=== PATIENT | female | born 1940 | race Caucasian/White ===

== ENCOUNTER 2022-12-24 13:44 | Emergency (ER) | payer MEDICARE, BC ==
[2022-12-24 14:05] VITALS: PULSE 60; TEMP 97.6
[2022-12-24] MEDS ORDERED: OXYMETAZOLINE 0.05% NASL SPRAY 1 SPRAY BOTTLE NASAL STA (14:18)
[2022-12-24] MEDS ORDERED: TRANEXAMIC ACID 1,000 MG/10 ML VIAL MISCELLANE ONE (14:30)
[2022-12-24] MEDS ORDERED: SILVER NITRATE APPLICATOR 1 EACH STICK..EA. TOPICAL STA (15:26)
--- NOTE | 2022-12-24 15:58 | ED ---
ENT HPI - General Chief complaint: ENT Stated complaint: Nose bleed Time Seen by Provider: 12/24/22 13:53 Source: patient, EMS Mode of arrival: EMS Limitations: physical limitation - History of Present Illness Initial comments: 82-year-old female who is brought into the emergency department for epistaxis. She does reside at [facility]. They state that the patient began having a bloody nose this morning that lasted for 2 hours. She reports that she has been placed on oxygen over the past week. She normally does not wear oxygen. She is not understanding why she is wearing it because she has had no shortness of breath. She believes that it is drying out her nose. She is not on any blood thinners. Denies any trauma today. She did have a fall a couple of days ago for which she was not evaluated. She denies any headaches or visual changes. No neck pain. No other alleviating, precipitating or modifying factors - Related Data Home Medications Medication Instructions Recorded Confirmed Aspirin [Children's Aspirin] 81 mg PO DAILY 11/08/22 12/24/22 LORazepam [Lorazepam] 0.5 mg PO Q12H PRN 11/08/22 12/24/22 Levothyroxine Sodium 88 mcg PO DAILY 11/08/22 12/24/22 Simvastatin 40 mg PO HS 11/08/22 12/24/22 traZODone HCL 100 mg PO HS 11/08/22 12/24/22 Docusate [Colace] 100 mg PO DAILY 12/24/22 12/24/22 Ferrous Sulfate [Feosol] 325 mg PO DAILY 12/24/22 12/24/22 Ketorolac 0.5% Ophth Soln [Acular 1 drop LEFT EYE BID 12/24/22 12/24/22 0.5%] Melatonin 10 mg PO HS 12/24/22 12/24/22 Metoprolol Tartrate [Lopressor] 25 mg PO BID 12/24/22 12/24/22 Sodium Bicarbonate Tab 650 mg PO HS 12/24/22 12/24/22 Torsemide [Demadex] 20 mg PO HS 12/24/22 12/24/22 fluvoxaMINE MALEATE [Luvox] 100 mg PO TID@0500,1300,2100 12/24/22 12/24/22 polyethylene glycoL 3350 [Miralax] 17 gm PO DAILY PRN 12/24/22 12/24/22 Previous Rx's Medication Instructions Recorded Sodium Chloride [Saline Mist] 1 spray EA NOSTRIL QID #45 ml 12/24/22 Allergies Allergy/AdvReac Type Severity Reaction Status Date / Time Penicillins Allergy Unknown Verified 12/24/22 15:52 Review of Systems ROS Statement: Those systems with pertinent positive or pertinent negative responses have been documented in the HPI. ROS Other: All systems not noted in ROS Statement are negative. Past Medical History Past Medical History: Atrial Fibrillation, Diabetes Mellitus, Hyperlipidemia, Hypertension, Thyroid Disorder Additional Past Medical History / Comment(s): Falls, CKD, anxiety, weakness, arterialscerotic heart disease, valvular heart disease, History of Any Multi-Drug Resistant Organisms: None Reported Past Surgical History: Pacemaker Additional Past Surgical History / Comment(s): Cataracts, Open heart surgery, sick sinus syndrom with pacemaker, Past Psychological History: Anxiety, Bipolar Smoking Status: Former smoker Past Alcohol Use History: None Reported Past Drug Use History: None Reported General Exam Limitations: physical limitation General appearance: alert, in no apparent distress Head exam: Present: atraumatic, normocephalic, normal inspection Eye exam: Present: normal appearance, PERRL, EOMI. Absent: scleral icterus, conjunctival injection, periorbital swelling ENT exam: Present: other (Dried blood in the right nare) Neck exam: Present: normal inspection. Absent: tenderness, meningismus, lymphadenopathy Respiratory exam: Present: normal lung sounds bilaterally. Absent: respiratory distress, wheezes, rales, rhonchi, stridor Cardiovascular Exam: Present: regular rate, normal rhythm, normal heart sounds. Absent: systolic murmur, diastolic murmur, rubs, gallop, clicks GI/Abdominal exam: Present: soft, normal bowel sounds. Absent: distended, tenderness, guarding, rebound, rigid Extremities exam: Present: normal inspection, full ROM, normal capillary refill. Absent: tenderness, pedal edema, joint swelling, calf tenderness Back exam: Present: normal inspection Neurological exam: Present: alert, oriented X3, CN II-XII intact Psychiatric exam: Present: normal affect, normal mood Skin exam: Present: warm, dry, intact, normal color. Absent: rash Course Vital Signs 12/24/22 12/24/22 13:51 16:24 Temperature 97.6 F Pulse Rate 60 60 Respiratory 18 17 Rate Blood Pressure 153/91 134/69 O2 Sat by Pulse 96 95 Oximetry Medical Decision Making - Medical Decision Making Was pt. sent in by a medical professional or institution (HENRIETTA Monk, HISTOLOGY MANAGER, urgent care, hospital, or residential...) When possible be specific @ -[facility] Did you speak to anyone other than the patient for history (EMS, parent, family, police, friend...)? What history was obtained from this source @ -I spoke with the patient's Did you review nursing and triage notes (agree or disagree)? Why? @ -I reviewed and agree with nursing and triage notes Were old charts reviewed (outside hosp., previous admission, EMS record, old EKG, old radiological studies, urgent care reports/EKG's, residential records)? Report findings @ -No old charts were reviewed Differential Diagnosis (chest pain, altered mental status, abdominal pain women, abdominal pain men, vaginal bleeding, weakness, fever, dyspnea, syncope, headache, dizziness, GI bleed, back pain, seizure, CVA, palpatations, mental health, musculoskeletal)? @ -Anterior epistaxis, posterior epistaxis, digital trauma, septal hematoma EKG interpreted by me (3pts min.). @ -Not done X-rays interpreted by me (1pt min.). @ -None done CT interpreted by me (1pt min.). @ -None done U/S interpreted by me (1pt. min.). @ -None done What testing was considered but not performed or refused? (CT, X-rays, U/S, labs)? Why? @ -None What meds were considered but not given or refused? Why? @ -None Did you discuss the management of the patient with other professionals (professionals i.e. HENRIETTA Monk, HISTOLOGY MANAGER, lab, RT, psych nurse, social organization professor, copyright manager, teacher, space operations officer, caser up)? Give summary @ -No Was smoking cessation discussed for >3mins.? @ -No Was critical care preformed (if so, how long)? @ -No Were there social determinants of health that impacted care today? How? (Homelessness, low income, unemployed, alcoholism, drug addiction, transportation, low edu. Level, literacy, decrease access to med. care, long term, rehab)? @ -No Was there de-escalation of care discussed even if they declined (Discuss DNR or withdrawal of care, Hospice)? DNR status @ -No What co-morbidities impacted this encounter? (DM, HTN, Smoking, COPD, CAD, Cance r, CVA, ARF, Chemo, Hep., AIDS, mental health diagnosis, sleep apnea, morbid obesity)? @ -None Was patient admitted / discharged? Hospital course, mention meds given and route, prescriptions, significant lab abnormalities, going to OR and other pertinent info. @ -Upon arrival patient was placed in a trauma 2. Bleeding has slowed. We Do place Afrin in the patient's nose. I then used TXA on a cotton pledget. Upon reevaluation I do see some prominent vessels near Liu box plexus. This area is then cauterized. She will be discharged home. Instructed to use nasal saline if the patient is given and oxygen. Follow-up with ENT and return for any new or worsening symptoms. Patient was agreeable to plan she is discharged in stable condition Undiagnosed new problem with uncertain prognosis? @ -No Drug Therapy requiring intensive monitoring for toxicity (Heparin, Nitro, Insu mary, Cardizem)? @ -No Were any procedures done? @ -Silver nitrate cautery Diagnosis/symptom? @ -Acute anterior epistaxis right nare Acute, or Chronic, or Acute on Chronic? @ -Acute Uncomplicated (without systemic symptoms) or Complicated (systemic symptoms)? @ -Uncomplicated Side effects of treatment? @ -No Exacerbation, Progression, or Severe Exacerbation? @ -No Poses a threat to life or bodily function? How? (Chest pain, USA, MD, pneumonia, PE, COPD, DKA, ARF, appy, cholecystitis, CVA, Diverticulitis, Homicidal, Suicidal, threat to staff... and all critical care pts) @ -No Disposition Clinical Impression: Epistaxis Disposition: HOME SELF-CARE Condition: Stable Instructions (If sedation given, give patient instructions): Nosebleed (ED) Additional Instructions: Your nose was cauterized today. Please do not blow your nose for the next 3 days. Use nasal saline if you are wearing oxygen. 1 spray in each nostril 4 times a day. Return for any new or worsening symptoms Prescriptions: Sodium Chloride [Saline Mist] 1 spray EA NOSTRIL QID #45 ml Is patient prescribed a controlled substance at d/c from ED?: No Referrals: Shari Laurent DO [Primary Care Provider] - 1-2 days Ra Live MD [STAFF PHYSICIAN] - 1-2 days Time of Disposition: 15:57
[2022-12-24 16:31] VITALS: BP 134/69; RESP 17
== END 2022-12-24 16:28 | disposition home or self-care (01) ==
LOC: EC 13:44
DX: R04.0 Epistaxis (principal); E11.22 Type 2 diabetes mellitus with diabetic chronic kidney disease; I12.9 Hypertensive chronic kidney disease with stage 1 through stage 4 chronic kidney disease, or unspecified chronic kidney disease; N18.9 Chronic kidney disease, unspecified; I48.91 Unspecified atrial fibrillation; E78.5 Hyperlipidemia, unspecified; F41.9 Anxiety disorder, unspecified; F31.9 Bipolar disorder, unspecified; Z87.891 Personal history of nicotine dependence; Z79.82 Long term (current) use of aspirin; Z79.899 Other long term (current) drug therapy; Z79.890 Hormone replacement therapy; Z88.0 Allergy status to penicillin; Z95.0 Presence of cardiac pacemaker
CPT/HCPCS: 99284

== ENCOUNTER 2023-04-09 08:20 | Inpatient (IN) | payer MEDICARE, BC ==
[2023-04-09] MEDS ORDERED: SODIUM CHLORIDE 0.9% 1,000 ML IV ONE (08:26)
[2023-04-09 08:27] LABS: Glucose,Whole Blood 154 mg/dL (70-110)
[2023-04-09] MEDS ORDERED: IPRATROPIUM-ALBUTEROL 3 ML NEB INHALATION PRN (08:27)
[2023-04-09] MEDS ORDERED: LORazepam 2 MG/ML INJ IV PRN ×2 (08:27)
--- NOTE | 2023-04-09 08:30 | ED ---
General Adult HPI - General Stated complaint: Cardiac Arrest Time Seen by Provider: 04/09/23 08:26 Source: EMS, RN notes reviewed, old records reviewed Mode of arrival: EMS Limitations: altered mental status, physical limitation - History of Present Illness Initial comments: Patient is an unresponsive 82-year-old female presenting with cardiac arrest. EMS arrived and bystander CPR was being done. EMS did provide CPR for approximately 23 minutes with 5 epinephrine. Patient was in PEA. Patient was intubated. They did achieve return of circulation. Patient remains unresp onsive. Patient reportedly felt a little bit weak before the episode. Witnessed arrest by family when trying to help patient out of the bathroom. - Related Data Home Medications Medication Instructions Recorded Confirmed Simvastatin 40 mg PO HS 11/08/22 04/09/23 Docusate [Colace] 100 mg PO BID 12/24/22 04/09/23 Ferrous Sulfate [Feosol] 325 mg PO DAILY 12/24/22 04/09/23 Metoprolol Tartrate [Lopressor] 25 mg PO BID 12/24/22 04/09/23 Furosemide [Lasix] 40 mg PO BID 04/09/23 04/09/23 Levothyroxine Sodium [Synthroid] 100 mcg PO DAILY 04/09/23 04/09/23 Potassium Chloride [Klor-Con M20] 20 meq PO DAILY 04/09/23 04/09/23 Tamsulosin HCl [Flomax] 0.4 mg PO DAILY 04/09/23 04/09/23 Allergies Allergy/AdvReac Type Severity Reaction Status Date / Time Penicillins Allergy Unknown Verified 04/09/23 10:14 Review of Systems ROS Statement: Those systems with pertinent positive or pertinent negative responses have been documented in the HPI. ROS Other: All systems not noted in ROS Statement are negative. Limitations: ROS unobtainable due to patients medical condition Past Medical History Past Medical History: Atrial Fibrillation, Diabetes Mellitus, Hyperlipidemia, Hypertension, Thyroid Disorder Additional Past Medical History / Comment(s): Falls, CKD, anxiety, weakness, arterialscerotic heart disease, valvular heart disease, History of Any Multi-Drug Resistant Organisms: None Reported Past Surgical History: Pacemaker Additional Past Surgical History / Comment(s): Cataracts, Open heart surgery, sick sinus syndrom with pacemaker, Smoking Status: Former smoker General Exam Limitations: altered mental status, physical limitation General appearance: other (Unresponsive. Intubated.) Head exam: Present: atraumatic Eye exam: Present: other (Pupils not reactive) ENT exam: Present: normal oropharynx Neck exam: Present: normal inspection Respiratory exam: Present: normal lung sounds bilaterally (With bagging insufflation) Cardiovascular Exam: Present: regular rate, normal rhythm GI/Abdominal exam: Present: soft. Absent: tenderness Extremities exam: Present: normal inspection Neurological exam: Present: other (Unresponsive. GCS 3.) Psychiatric exam: Present: other (Unresponsive) Skin exam: Present: abrasion (Anterior shins) Course Vital Signs 04/09/23 04/09/23 04/09/23 08:21 08:25 08:28 Pulse Rate 91 Respiratory 20 Rate Blood Pressure 129/86 O2 Sat by Pulse 99 Oximetry Fraction of 100 100 Inspired Oxygen (FIO2) 04/09/23 04/09/23 04/09/23 08:45 09:00 09:18 Pulse Rate 78 Respiratory 20 20 20 Rate Blood Pressure 120/79 117/81 127/73 O2 Sat by Pulse 100 Oximetry Fraction of Inspired Oxygen (FIO2) 04/09/23 04/09/23 04/09/23 09:40 09:50 10:00 Pulse Rate 60 71 71 Respiratory 14 20 20 Rate Blood Pressure 154/83 154/83 O2 Sat by Pulse 99 Oximetry Fraction of Inspired Oxygen (FIO2) 04/09/23 04/09/23 04/09/23 10:10 10:30 10:40 Pulse Rate 72 72 72 Respiratory 18 18 18 Rate Blood Pressure 149/85 155/85 160/87 O2 Sat by Pulse 100 100 100 Oximetry Fraction of Inspired Oxygen (FIO2) 04/09/23 11:01 Pulse Rate 74 Respiratory Rate Blood Pressure O2 Sat by Pulse Oximetry Fraction of Inspired Oxygen (FIO2) EKG Findings - EKG Results: EKG: interpreted by ERMD (Paced rhythm with a rate of 90. Left axis. Wide QRS complex. Nonspecific T waves.) Procedures - ABG Interpretation Ph: 7.33 PCO2: 36.5 PO2: 400 Bicarbonate: 19 Interpretation: metabolic acidosis Medical Decision Making - Medical Decision Making Was pt. sent in by a medical professional or institution (, PA, ROLLER HELPER, urgent care, hospital, or assisted...) When possible be specific @ -No Did you speak to anyone other than the patient for history (EMS, parent, family, police, friend...)? What history was obtained from this source @ -EMS provides history as patient is unresponsive Did you review nursing and triage notes (agree or disagree)? Why? @ -I reviewed and agree with nursing and triage notes Were old charts reviewed (outside hosp., previous admission, EMS record, old EKG, old radiological studies, urgent care reports/EKG's, assisted records)? Report findings @ - Differential Diagnosis (chest pain, altered mental status, abdominal pain women, abdominal pain men, vaginal bleeding, weakness, fever, dyspnea, syncope, headac he, dizziness, GI bleed, back pain, seizure, CVA, palpatations, mental health, musculoskeletal)? @ -Differential Syncope: Valvular disease, hypertrophic cardiomyopathy, pulmonary embolism, tamponade, tachycardia, bradycardia, OH, hypovolemia, hemorrhage, dissection, anemia, intr acranial hemorrhage, seizure, hypoglycemia, carbon monoxide poisoning, this is not meant to be an all-inclusive list. EKG interpreted by me (3pts min.). @ -As above X-rays interpreted by me (1pt min.). @ -Chest x-ray shows right-sided effusion. Endotracheal tube in place. CT interpreted by me (1pt min.). @ -CT brain without acute obvious intracranial abnormality U/S interpreted by me (1pt. min.). @ -None done What testing was considered but not performed or refused? (CT, X-rays, U/S, labs)? Why? @ -None What meds were considered but not given or refused? Why? @ -None Did you discuss the management of the patient with other professionals (emili monae i.e. , PA, ROLLER HELPER, lab, RT, psych nurse, social professionals, top and seat cover fitter, teacher, county health officer, family caseworker)? Give summary @ -Case was discussed with Dr. Norman will admit, Dr. Laurent. Dr. Galvan has been paged for critical care Was smoking cessation discussed for >3mins.? @ -No Was critical care preformed (if so, how long)? @ -32 minutes critical care time Were there social determinants of health that impacted care today? How? (Homelessness, low income, unemployed, alcoholism, drug addiction, transportation, low edu. Level, literacy, decrease access to med. care, senior living, rehab)? @ -No Was there de-escalation of care discussed even if they declined (Discuss DNR or withdrawal of care, Hospice)? DNR status @ -No What co-morbidities impacted this encounter? (DM, HTN, Smoking, COPD, CAD, Cancer, CVA, ARF, Chemo, Hep., AIDS, mental health diagnosis, sleep apnea, morbid obesity)? @ -None Was patient admitted / discharged? Hospital course, mention meds given and [place], prescriptions, significant lab abnormalities, going to OR and other pertinent info. @ -Patient reevaluated. Blood pressure and heart rate has been stable. Family updated. Patient has hyperkalemia. Medications provided for this. Patient also has evidence of CHF and renal value. Cardiology and nephrology will also be placed on consult. Admission orders written. Patient will go to ICU. Undiagnosed new problem with uncertain prognosis? @ -No Drug Therapy requiring intensive monitoring for toxicity (Heparin, Nitro, Insulin, Cardizem)? @ -Patient currently receiving several medications for hyperkalemia that when he monitoring Were any procedures done? @ -No Diagnosis/symptom? @ -Cardiac arrest, hyperkalemia, renal failure, CHF Acute, or Chronic, or Acute on Chronic? @ -Acute, acute, acute on chronic, acute on chronic Uncomplicated (without systemic symptoms) or Complicated (systemic symptoms)? @ -default Side effects of treatment? @ -No Exacerbation, Progression, or Severe Exacerbation? @ -No Poses a threat to life or bodily function? How? (Chest pain, USA, OH, pneumonia, PE, COPD, DKA, ARF, appy, cholecystitis, CVA, Diverticulitis, Homicidal, Suicidal, threat to staff... and all critical care pts) @ -No - Lab Data Result diagrams: 04/09/23 08:32 04/09/23 08:32 Lab Results 04/09/23 04/09/23 04/09/23 Range/Units 08:26 08:32 08:32 WBC 5.0 (3.8-10.6) k/uL RBC 3.45 L (3.80-5.40) m/uL Hgb 10.5 L (11.4-16.0) gm/dL Hct 34.5 (34.0-46.0) % MCV 99.8 (80.0-100.0) fL MCH 30.4 (25.0-35.0) pg MCHC 30.4 L (31.0-37.0) g/dL RDW 16.0 H (11.5-15.5) % Plt Count 118 L (150-450) k/uL MPV 9.2 Neutrophils % 72 % Lymphocytes % 21 % Monocytes % 5 % Eosinophils % 1 % Basophils % 0 % Neutrophils # 3.6 (1.3-7.7) k/uL Lymphocytes # 1.1 (1.0-4.8) k/uL Monocytes # 0.2 (0-1.0) k/uL Eosinophils # 0.0 (0-0.7) k/uL Basophils # 0.0 (0-0.2) k/uL Hypochromasia Marked Anisocytosis Slight Macrocytosis Slight PT 15.0 H (10.0-12.5) sec INR 1.4 H (<1.2) APTT 19.8 L (22.0-30.0) sec Sample Site ABG pH (7.35-7.45) ABG pCO2 (35-45) mmHg ABG pO2 (83-108) mmHg ABG HCO3 (21-25) mmol/L ABG Total CO2 (19-24) mmol/L ABG O2 Saturation (94-97) % ABG Base Excess mmol/L Walker Test FiO2 % Sodium (137-145) mmol/L Potassium (3.5-5.1) mmol/L Chloride (98-107) mmol/L Carbon Dioxide (22-30) mmol/L Anion Gap mmol/L BUN (7-17) mg/dL Creatinine (0.52-1.04) mg/dL Est GFR (CKD-EPI)AfAm (>60 ml/min/1.73 sqM) Est GFR (CKD-EPI)NonAf (>60 ml/min/1.73 sqM) Glucose (74-99) mg/dL POC Glucose (mg/dL) 154 H (70-110) mg/dL POC Glu Product Development Carpenter ID Agustina Granger Calcium (8.4-10.2) mg/dL Magnesium (1.6-2.3) mg/dL Total Bilirubin (0.2-1.3) mg/dL AST (14-36) U/L ALT (4-34) U/L Alkaline Phosphatase (38-126) U/L Troponin I (0.000-0.034) ng/mL NT-Pro-B Natriuret Pep pg/mL Total Protein (6.3-8.2) g/dL Albumin (3.5-5.0) g/dL Urine Color Urine Appearance (Clear) Urine pH (5.0-8.0) Ur Specific [place] (1.001-1.035) Urine Protein (Negative) Urine Glucose (UA) (Negative) Urine Ketones (Negative) Urine Blood (Negative) Urine Nitrite (Negative) Urine Bilirubin (Negative) Urine Urobilinogen (<2.0) mg/dL Ur Leukocyte Esterase (Negative) Urine RBC (0-5) /hpf Urine WBC (0-5) /hpf Urine WBC Clumps (None) /hpf Ur Squamous Epith Cells (0-4) /hpf Amorphous Sediment (None) /hpf Urine Mucus (None) /hpf Influenza Type A (PCR) (Not Detectd) Influenza Type B (PCR) (Not Detectd) RSV (PCR) (Not Detectd) SARS-CoV-2 (PCR) (Not Detectd) 04/09/23 04/09/23 04/09/23 Range/Units 08:32 08:32 08:32 WBC (3.8-10.6) k/uL RBC (3.80-5.40) m/uL Hgb (11.4-16.0) gm/dL Hct (34.0-46.0) % MCV (80.0-100.0) fL MCH (25.0-35.0) pg MCHC (31.0-37.0) g/dL RDW (11.5-15.5) % Plt Count (150-450) k/uL MPV Neutrophils % % Lymphocytes % % Monocytes % % Eosinophils % % Basophils % % Neutrophils # (1.3-7.7) k/uL Lymphocytes # (1.0-4.8) k/uL Monocytes # (0-1.0) k/uL Eosinophils # (0-0.7) k/uL Basophils # (0-0.2) k/uL Hypochromasia Anisocytosis Macrocytosis PT (10.0-12.5) sec INR (<1.2) APTT (22.0-30.0) sec Sample Site ABG pH (7.35-7.45) ABG pCO2 (35-45) mmHg ABG pO2 (83-108) mmHg ABG HCO3 (21-25) mmol/L ABG Total CO2 (19-24) mmol/L ABG O2 Saturation (94-97) % ABG Base Excess mmol/L Walker Test FiO2 % Sodium 131 L (137-145) mmol/L Potassium 6.6 H* (3.5-5.1) mmol/L Chloride 96 L (98-107) mmol/L Carbon Dioxide 15 L (22-30) mmol/L Anion Gap 20 mmol/L BUN 83 H (7-17) mg/dL Creatinine 3.97 H (0.52-1.04) mg/dL Est GFR (CKD-EPI)AfAm 11 (>60 ml/min/1.73 sqM) Est GFR (CKD-EPI)NonAf 10 (>60 ml/min/1.73 sqM) Glucose 198 H (74-99) mg/dL POC Glucose (mg/dL) (70-110) mg/dL POC Glu Product Development Carpenter ID Calcium 8.5 (8.4-10.2) mg/dL Magnesium 2.7 H (1.6-2.3) mg/dL Total Bilirubin 0.7 (0.2-1.3) mg/dL AST 91 H (14-36) U/L ALT 67 H (4-34) U/L Alkaline Phosphatase 184 H (38-126) U/L Troponin I 0.022 (0.000-0.034) ng/mL NT-Pro-B Natriuret Pep pg/mL Total Protein 5.5 L (6.3-8.2) g/dL Albumin 2.8 L (3.5-5.0) g/dL Urine Color Light Yellow Urine Appearance Cloudy H (Clear) Urine pH 7.5 (5.0-8.0) Ur Specific [place] 1.014 (1.001-1.035) Urine Protein 2+ H (Negative) Urine Glucose (UA) Negative (Negative) Urine Ketones Negative (Negative) Urine Blood Negative (Negative) Urine Nitrite Negative (Negative) Urine Bilirubin Negative (Negative) Urine Urobilinogen <2.0 (<2.0) mg/dL Ur Leukocyte Esterase Moderate H (Negative) Urine RBC 2 (0-5) /hpf Urine WBC 39 H (0-5) /hpf Urine WBC Clumps Rare H (None) /hpf Ur Squamous Epith Cells 3 (0-4) /hpf Amorphous Sediment Few H (None) /hpf Urine Mucus Rare H (None) /hpf Influenza Type A (PCR) (Not Detectd) Influenza Type B (PCR) (Not Detectd) RSV (PCR) (Not Detectd) SARS-CoV-2 (PCR) (Not Detectd) 04/09/23 04/09/23 04/09/23 Range/Units 08:32 09:00 09:25 WBC (3.8-10.6) k/uL RBC (3.80-5.40) m/uL Hgb (11.4-16.0) gm/dL Hct (34.0-46.0) % MCV (80.0-100.0) fL MCH (25.0-35.0) pg MCHC (31.0-37.0) g/dL RDW (11.5-15.5) % Plt Count (150-450) k/uL MPV Neutrophils % % Lymphocytes % % Monocytes % % Eosinophils % % Basophils % % Neutrophils # (1.3-7.7) k/uL Lymphocytes # (1.0-4.8) k/uL Monocytes # (0-1.0) k/uL Eosinophils # (0-0.7) k/uL Basophils # (0-0.2) k/uL Hypochromasia Anisocytosis Macrocytosis PT (10.0-12.5) sec INR (<1.2) APTT (22.0-30.0) sec Sample Site rbrach ABG pH 7.34 L (7.35-7.45) ABG pCO2 37 (35-45) mmHg ABG pO2 >400 H (83-108) mmHg ABG HCO3 20 L (21-25) mmol/L ABG Total CO2 21 (19-24) mmol/L ABG O2 Saturation 100.0 H (94-97) % ABG Base Excess -6.4 mmol/L Walker Test Yes FiO2 100 % Sodium (137-145) mmol/L Potassium (3.5-5.1) mmol/L Chloride (98-107) mmol/L Carbon Dioxide (22-30) mmol/L Anion Gap mmol/L BUN (7-17) mg/dL Creatinine (0.52-1.04) mg/dL Est GFR (CKD-EPI)AfAm (>60 ml/min/1.73 sqM) Est GFR (CKD-EPI)NonAf (>60 ml/min/1.73 sqM) Glucose (74-99) mg/dL POC Glucose (mg/dL) (70-110) mg/dL POC Glu Product Development Carpenter ID Calcium (8.4-10.2) mg/dL Magnesium (1.6-2.3) mg/dL Total Bilirubin (0.2-1.3) mg/dL AST (14-36) U/L ALT (4-34) U/L Alkaline Phosphatase (38-126) U/L Troponin I (0.000-0.034) ng/mL NT-Pro-B Natriuret Pep 08627 pg/mL Total Protein (6.3-8.2) g/dL Albumin (3.5-5.0) g/dL Urine Color Urine Appearance (Clear) Urine pH (5.0-8.0) Ur Specific [place] (1.001-1.035) Urine Protein (Negative) Urine Glucose (UA) (Negative) Urine Ketones (Negative) Urine Blood (Negative) Urine Nitrite (Negative) Urine Bilirubin (Negative) Urine Urobilinogen (<2.0) mg/dL Ur Leukocyte Esterase (Negative) Urine RBC (0-5) /hpf Urine WBC (0-5) /hpf Urine WBC Clumps (None) /hpf Ur Squamous Epith Cells (0-4) /hpf Amorphous Sediment (None) /hpf Urine Mucus (None) /hpf Influenza Type A (PCR) Not Detected (Not Detectd) Influenza Type B (PCR) Not Detected (Not Detectd) RSV (PCR) Not Detected (Not Detectd) SARS-CoV-2 (PCR) Not Detected (Not Detectd) Critical Care Time Critical Care Time: Yes Total Critical Care Time: 32 Disposition Clinical Impression: Cardiac arrest, Hyperkalemia, Renal failure, CHF (congestive heart failure) Disposition: ADMITTED IP TO THIS [facility] Condition: Critical Is patient prescribed a controlled substance at d/c from ED?: No Referrals: Shari Laurent DO [Primary Care Provider] - 1-2 days Time of Disposition: 11:25
[2023-04-09 08:43] LABS: Anisocytosis Slight; Basophils % (A) 0 %; Eosinophils % (A) 1 %; HCT 34.5 % (34.0-46.0); HGB 10.5 gm/dL (11.4-16.0); Hypochromasia Marked; Lymphocytes # (A) 1.1 k/uL (1.0-4.8); Lymphocytes % (A) 21 %; MCH 30.4 pg (25.0-35.0); MCHC 30.4 g/dL (31.0-37.0); MCV 99.8 fL (80.0-100.0); Macrocytosis Slight; Mean Platelet Volume 9.2; Monocytes # (A) 0.2 k/uL (0-1.0); Monocytes % (A) 5 %; Neutrophils # (A) 3.6 k/uL (1.3-7.7); Neutrophils % (A) 72 %; Platelet Count 118 k/uL (150-450); RBC 3.45 m/uL (3.80-5.40)
[2023-04-09] MEDS ORDERED: CHLORHEXIDINE GLUCONATE 15 ML CUP MUCOUS MEM SCH (09:00)
[2023-04-09 09:02] LABS: INR 1.4 (<1.2)
--- NOTE | 2023-04-09 09:03 | XR ---
EXAMINATION TYPE: XR chest 1V portable DATE OF EXAM: 04/09/2023 COMPARISON: None INDICATION: Altered mental status post cardiac arrest TECHNIQUE: Single frontal view of the chest is obtained. FINDINGS: The heart size is enlarged. The pulmonary vasculature is normal. Diffuse increased opacities through the right lung. There is silhouetting the right diaphragm. A righ t pleural effusion appears to be present. Pacemaker overlies the left chest. IMPRESSION: 1. Opacification right lung. Correlate for right pleural effusion. 2. Cardiomegaly
[2023-04-09 09:06] LABS: Partial Thromboplastin Time 19.8 sec (22.0-30.0)
[2023-04-09 09:23] LABS: ALT 67 U/L (4-34); AST 91 U/L (14-36); African American GFR (CKD) 11 (>60 ml/min/1.73 sqM); Albumin 2.8 g/dL (3.5-5.0); Alkaline Phosphatase 184 U/L (38-126); Anion Gap 20 mmol/L; Blood Urea Nitrogen 83 mg/dL (7-17); Calcium 8.5 mg/dL (8.4-10.2); Carbon Dioxide 15 mmol/L (22-30); Chloride 96 mmol/L (98-107); Glucose 198 mg/dL (74-99); Magnesium 2.7 mg/dL (1.6-2.3); Non-African American GFR(CKD) 10 (>60 ml/min/1.73 sqM); Sodium 131 mmol/L (137-145); Total Bilirubin 0.7 mg/dL (0.2-1.3); Total Protein 5.5 g/dL (6.3-8.2)
[2023-04-09 09:28] LABS: ABG Base Excess -6.4 mmol/L; ABG HCO3 20 mmol/L (21-25); ABG PCO2 37 mmHg (35-45); ABG PH 7.34 (7.35-7.45); ABG PO2 >400 mmHg (83-108); ABG TCO2 21 mmol/L (19-24); Allen Test Performed? Yes
[2023-04-09 09:30] LABS: Amorphous Sediment,Urine Few /hpf; Appearance,Urine Cloudy (Clear); Bilirubin,Urine Negative (Negative); Blood,Urine Negative (Negative); Color,Urine Light Yellow; Glucose,Urine (UA) Negative (Negative); Ketones,Urine Negative (Negative); Leukocyte Esterase,Urine Moderate (Negative); Mucus,Urine Rare /hpf; Nitrite,Urine Negative (Negative); PH, Urine 7.5 (5.0-8.0); Protein,Urine 2+ (Negative); RBC,Urine 2 /hpf (0-5); Specific Gravity,Urine 1.014 (1.001-1.035); Squamous Epithelial Cell,Urine 3 /hpf (0-4); Urobilinogen,Urine <2.0 mg/dL (<2.0); WBC,Urine 39 /hpf (0-5)
--- NOTE | 2023-04-09 09:54 | CT ---
EXAMINATION TYPE: CT brain wo con DATE OF EXAM: 04/09/2023 HISTORY: altered mental status CT DLP: 1095.4 mGycm. Automated Exposure Control for Dose Reduction was Utilized. TECHNIQUE: CT scan of the head is performed without contrast. COMPARISON: None. FINDINGS: There is no acute intracranial hemorrhage or midline shift identified. There is mild to m oderate diffuse ventricular and sulcal prominence consistent with diffuse age-related cerebral atroph y. There is mild to moderate low-attenuation in the periventricular white matter most likely consist ent with chronic small vessel ischemic change in patient of this age. Vascular calcification distal internal carotid arteries is present. The globes are intact and the visualized sinuses are clear. IMPRESSION: No acute intracranial hemorrhage or midline shift. There is mild to moderate diffuse ag e-related cerebral atrophy and probable chronic small vessel ischemic change noted.
--- NOTE | 2023-04-09 10:01 | XR ---
EXAMINATION TYPE: XR chest 1V DATE OF EXAM: 04/09/2023 COMPARISON: 04/09/2023 INDICATION: OG tube placement TECHNIQUE: Single frontal view of the chest is obtained. FINDINGS: The heart size is enlarged. The pulmonary vasculature is normal. Right pleural effusion is present. Endotracheal tube tip 7.2 cm above the roberto. Nasogastric tube transverses the thorax tip within the proximal the left upper quadrant. This can be advanced at least 10 cm for better positioning. IMPRESSION: 1. Moderate right pleural effusion. 2. Cardiomegaly. 3. Endotracheal tube tip just within the proximal left upper quadrant. This can be advanced 10 cm for better seating.
[2023-04-09 10:24] LABS: Potassium 6.6 mmol/L (3.5-5.1)
[2023-04-09] MEDS ORDERED: DEXTROSE 50% SYRINGE 50 ML IVP ONE (10:35)
[2023-04-09] MEDS ORDERED: ALBUTEROL NEB (CONC) 2.5 MG/0.5 ML INHALATION ONE (10:35)
[2023-04-09] MEDS ORDERED: INSULIN REGULAR 100 UNIT/ML VIAL (IV) IV ONE (10:35)
[2023-04-09] MEDS ORDERED: SODIUM BICARB 8.4% 50 ML SYR (1 MEQ/ML) IV ONE (10:35)
[2023-04-09] MEDS ORDERED: CALCIUM GLUCONATE IN NACL 1 GM in SALINE 1 100ML.BAG IVPB ONE (10:35)
[2023-04-09] MEDS ORDERED: FUROSEMIDE 10 MG/ML 4 ML VIAL IV STA (10:35)
[2023-04-09] MEDS ORDERED: ALBUTEROL NEBULIZED 2.5 MG/3 ML INHALATION STA (10:45)
[2023-04-09] MEDS ORDERED: NALOXONE 0.4 MG/ML 1 ML VIAL IV PRN (11:25)
[2023-04-09 12:07] VITALS: RESP 16
[2023-04-09 12:47] LABS: Glucose,Whole Blood 192 mg/dL (70-110)
[2023-04-09 13:12] LABS: ALT 55 U/L (4-34); AST 101 U/L (14-36); African American GFR (CKD) 12 (>60 ml/min/1.73 sqM); Albumin 3.4 g/dL (3.5-5.0); Alkaline Phosphatase 226 U/L (38-126); Anion Gap 17 mmol/L; Blood Urea Nitrogen 91 mg/dL (7-17); Calcium 9.4 mg/dL (8.4-10.2); Carbon Dioxide 20 mmol/L (22-30); Chloride 94 mmol/L (98-107); Glucose 194 mg/dL (74-99); Non-African American GFR(CKD) 10 (>60 ml/min/1.73 sqM); Sodium 131 mmol/L (137-145); Total Bilirubin 0.9 mg/dL (0.2-1.3); Total Protein 6.4 g/dL (6.3-8.2)
[2023-04-09] MEDS ORDERED: DEXTROSE 5% IN WATER 1,000 ML with SODIUM BICARB (1 MEQ/ML) 150 ML IV SCH (13:30)
[2023-04-09 13:36] LABS: Potassium 6.5 mmol/L (3.5-5.1)
[2023-04-09] MEDS ORDERED: ATROPINE OPHTH SOLN 1% 5ML BTL SUBLINGUAL PRN (13:59)
[2023-04-09] MEDS ORDERED: MORPHINE SULFATE 4 MG/ML SYRINGE IV PRN (13:59)
[2023-04-09] MEDS ORDERED: MORPHINE SULFATE 2 MG/ML SYRINGE IV PRN (13:59)
[2023-04-09] MEDS ORDERED: SCOPOLAMINE 1 MG/72 HR PATCH TRANSDERM SCH (14:00)
--- NOTE | 2023-04-09 14:15 | P.HPIM ---
History of Present Illness H&P Date: 04/09/23 Chief Complaint: Became unresponsive This is a 82-year-old patient, follows with Dr. Shari toledo. Chronic stable medical conditions include atrial fibrillation, diabetes, hyperlipidemia, hypertension, hypothyroid, chronic kidney disease, atherosclerotic heart disease, pacemaker, sick sinus syndrome with a pacemaker. Bipolar. History is obtained by the and family members including the daughter in the waiting room. For the last few days patient has been getting another weak and tired. Was even having trouble getting up. had to help her up. Appetite had been poor. No fever no chills. Normally does use a walker. Patient was witnessed to become unconscious. EMS was called out. They found the patient to be unresponsive, pulseless and apneic. 23 minutes of CPR was done prior to that.neighbor Carried out chest compressions. Patient presented with pulseless electrical activity on the monitor. t subsequently developed a pulse. Remained apneic. Patient is intubated. This afternoon in the ICU. Propofol drip blood pressure 160 systolic. In tubated. FiO2 50 to PEEP of 5. Family did inform me that patient's wishes were DO NOT RESUSCITATE. presently was to give her a chance. Review of systems: Patient intubated Social history: Lives with her . Does use a walker. Former smoker Physical examination: VITAL SIGNS: Afebrile, 60, 16, 174/86, 100% on the ventilator. FiO2 50% GENERAL: BMI 22.5, in bed. EYES: Pupils equal. Conjunctiva normal. HEENT: External appearance of nose and ears normal, oral cavity grossly normal ET tube. NECK: JVD unable to assess; masses not palpable. HEART: First and second heart sounds are normal; no edema. LUNGS: Respiratory rate increased; decreased breath sounds. ABDOMEN: Soft, nontender, liver spleen not palpable, no masses palpable. PSYCH: Sedatedl. MUSCULOSKELETAL:No Clubbing/cyanosis;muscles-grossly intact. OA NEUROLOGICAL: [Cranial nerves grossly intact; no facial asymmetry, patient sedated LYMPHATICS: No lymph nodes palpable in the axilla and neck INVESTIGATIONS, reviewed in the clinical context: 04/09/2023: White count 5 hemoglobin 10.5 platelets 118 sodium 131 potassium 6.5 BUN 91 creatinine 3.80 blood glucose 190 AST 101 ALT 55 Influenza type A, B, RSV, COVID-19: Not detected EKG tracing personally reviewed by [id number] pacemaker. Chest x-ray film personally reviewed by me-right basilar Javier vacation Computed tomography scan of the brain age-related atrophy Assessment plan: -Witnessed cardiac arrest. 423 minutes of CPR given by the EMS, prior to that by a bystander. 5 epinephrine. Rhythm was PEA. Intubated on the field. -Permanent pacemaker with a ventricular rhythm Cardiology consulted -Chronic kidney disease stage IV. Likely atherosclerosis. Causing hyperkalemia Nephrology consulted -Severe hyperkalemia that could've contributing to patient's cardiac arrest secondary to renal failure Sodium bicarbonate. Dextrose. Insulin. -Chronic medical debility, using a walker at baseline -Acute medical debility. Last few days patient has been becoming progressively increasingly weak. had to require given a hand including getting her hand this morning to get up. -Hypothyroid Synthroid 100 g a day -Bladder dysfunction Flomax -DO NOT RESUSCITATE Admit for the patient's family including the patient's and daughter the waiting room with other family members. The Pain to them that patient's prognosis guarded given his patient's advanced age. Decreased functional capacity. Also patient's wishes have been DO NOT RESUSCITATE as expressed by all the family members. 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 Past Medical History Past Medical History: Atrial Fibrillation, Diabetes Mellitus, Hyperlipidemia, Hypertension, Thyroid Disorder Additional Past Medical History / Comment(s): Falls, CKD, anxiety, weakness, arterialscerotic heart disease, valvular heart disease, History of Any Multi-Drug Resistant Organisms: None Reported Past Surgical History: Pacemaker Additional Past Surgical History / Comment(s): Cataracts, Open heart surgery, sick sinus syndrom with pacemaker, Smoking Status: Former smoker Medications and Allergies Home Medications Medication Instructions Recorded Confirmed Type Simvastatin 40 mg PO HS 11/08/22 04/09/23 History Docusate [Colace] 100 mg PO BID 12/24/22 04/09/23 History Ferrous Sulfate [Feosol] 325 mg PO DAILY 12/24/22 04/09/23 History Metoprolol Tartrate [Lopressor] 25 mg PO BID 12/24/22 04/09/23 History Furosemide [Lasix] 40 mg PO BID 04/09/23 04/09/23 History Levothyroxine Sodium [Synthroid] 100 mcg PO DAILY 04/09/23 04/09/23 History Potassium Chloride [Klor-Con M20] 20 meq PO DAILY 04/09/23 04/09/23 History Tamsulosin HCl [Flomax] 0.4 mg PO DAILY 04/09/23 04/09/23 History Allergies Allergy/AdvReac Type Severity Reaction Status Date / Time Penicillins Allergy Unknown Verified 04/09/23 10:14 Physical Exam Vitals: Vital Signs Pulse Resp BP Pulse Ox FiO2 04/09/23 12:46 50 04/09/23 12:42 50 04/09/23 12:17 50 04/09/23 12:00 60 16 174/86 100 04/09/23 11:22 60 04/09/23 11:01 74 04/09/23 10:40 72 18 160/87 100 04/09/23 10:30 72 18 155/85 100 04/09/23 10:10 72 18 149/85 100 04/09/23 10:00 71 20 154/83 99 04/09/23 09:50 71 20 154/83 04/09/23 09:40 60 14 04/09/23 09:18 20 127/73 04/09/23 09:00 20 117/81 04/09/23 08:45 78 20 120/79 100 04/09/23 08:25 100 04/09/23 08:21 91 20 129/86 99 Intake and Output 04/08/23 04/09/23 04/09/23 22:59 06:59 14:59 Intake Total 2.198 Balance 2.198 Intake: Intake, IV Titration 2.198 Amount propofoL 1,000 mg In 2.198 Empty Bag 1 bag @ 15 MCG/ KG/MIN 5.511 mls/hr IV . Q18H9M [facility] Rx#:[id number] Other: Weight 61.235 kg Results CBC & Chem 7: 04/09/23 08:32 04/09/23 12:52 Labs: Abnormal Lab Results - Last 24 Hours (Table) 04/09/23 04/09/23 04/09/23 Range/Units 08:26 08:32 08:32 RBC 3.45 L (3.80-5.40) m/uL Hgb 10.5 L (11.4-16.0) gm/dL MCHC 30.4 L (31.0-37.0) g/dL RDW 16.0 H (11.5-15.5) % Plt Count 118 L (150-450) k/uL PT 15.0 H (10.0-12.5) sec INR 1.4 H (<1.2) APTT 19.8 L (22.0-30.0) sec ABG pH (7.35-7.45) ABG pO2 (83-108) mmHg ABG HCO3 (21-25) mmol/L ABG O2 Saturation (94-97) % Sodium (137-145) mmol/L Potassium (3.5-5.1) mmol/L Chloride (98-107) mmol/L Carbon Dioxide (22-30) mmol/L BUN (7-17) mg/dL Creatinine (0.52-1.04) mg/dL Glucose (74-99) mg/dL POC Glucose (mg/dL) 154 H (70-110) mg/dL Magnesium (1.6-2.3) mg/dL AST (14-36) U/L ALT (4-34) U/L Alkaline Phosphatase (38-126) U/L Total Protein (6.3-8.2) g/dL Albumin (3.5-5.0) g/dL Urine Appearance (Clear) Urine Protein (Negative) Ur Leukocyte Esterase (Negative) Urine WBC (0-5) /hpf Urine WBC Clumps (None) /hpf Amorphous Sediment (None) /hpf Urine Mucus (None) /hpf 04/09/23 04/09/23 04/09/23 Range/Units 08:32 08:32 09:25 RBC (3.80-5.40) m/uL Hgb (11.4-16.0) gm/dL MCHC (31.0-37.0) g/dL RDW (11.5-15.5) % Plt Count (150-450) k/uL PT (10.0-12.5) sec INR (<1.2) APTT (22.0-30.0) sec ABG pH 7.34 L (7.35-7.45) ABG pO2 >400 H (83-108) mmHg ABG HCO3 20 L (21-25) mmol/L ABG O2 Saturation 100.0 H (94-97) % Sodium 131 L (137-145) mmol/L Potassium 6.6 H* (3.5-5.1) mmol/L Chloride 96 L (98-107) mmol/L Carbon Dioxide 15 L (22-30) mmol/L BUN 83 H (7-17) mg/dL Creatinine 3.97 H (0.52-1.04) mg/dL Glucose 198 H (74-99) mg/dL POC Glucose (mg/dL) (70-110) mg/dL Magnesium 2.7 H (1.6-2.3) mg/dL AST 91 H (14-36) U/L ALT 67 H (4-34) U/L Alkaline Phosphatase 184 H (38-126) U/L Total Protein 5.5 L (6.3-8.2) g/dL Albumin 2.8 L (3.5-5.0) g/dL Urine Appearance Cloudy H (Clear) Urine Protein 2+ H (Negative) Ur Leukocyte Esterase Moderate H (Negative) Urine WBC 39 H (0-5) /hpf Urine WBC Clumps Rare H (None) /hpf Amorphous Sediment Few H (None) /hpf Urine Mucus Rare H (None) /hpf 04/09/23 04/09/23 Range/Units 12:46 12:52 RBC (3.80-5.40) m/uL Hgb (11.4-16.0) gm/dL MCHC (31.0-37.0) g/dL RDW (11.5-15.5) % Plt Count (150-450) k/uL PT (10.0-12.5) sec INR (<1.2) APTT (22.0-30.0) sec ABG pH (7.35-7.45) ABG pO2 (83-108) mmHg ABG HCO3 (21-25) mmol/L ABG O2 Saturation (94-97) % Sodium 131 L (137-145) mmol/L Potassium 6.5 H* (3.5-5.1) mmol/L Chloride 94 L (98-107) mmol/L Carbon Dioxide 20 L (22-30) mmol/L BUN 91 H (7-17) mg/dL Creatinine 3.80 H (0.52-1.04) mg/dL Glucose 194 H (74-99) mg/dL POC Glucose (mg/dL) 192 H (70-110) mg/dL Magnesium (1.6-2.3) mg/dL AST 101 H (14-36) U/L ALT 55 H (4-34) U/L Alkaline Phosphatase 226 H (38-126) U/L Total Protein (6.3-8.2) g/dL Albumin 3.4 L (3.5-5.0) g/dL Urine Appearance (Clear) Urine Protein (Negative) Ur Leukocyte Esterase (Negative) Urine WBC (0-5) /hpf Urine WBC Clumps (None) /hpf Amorphous Sediment (None) /hpf Urine Mucus (None) /hpf
[2023-04-09 14:30] VITALS: TEMP 91.8
--- NOTE | 2023-04-09 14:50 | P.CNPUL ---
History of Present Illness Consult date: 04/09/23 Requesting physician: Tommie Norman Reason for consult: other (Cardiac arrest and respiratory failure) Chief complaint: Cardiac arrest History of present illness: This is an 82-year-old female primarily a patient of Dr. Shari toledo, known history of multiple medical problems including atrial fibrillation, dyslipidemia, coronary artery disease, sick sinus syndrome, history of pacemaker implantation, noted that the patient was having difficulty getting off the commode earlier today, suddenly the patient collapsed, and started CPR. EMS was called and arrived within 10 minutes, patient was unresponsive and pulseless all along and she was also apneic, EMS performed CPR patient had at least 23 minutes of CPR. She was intubated in the field, and she was brought into the ER. Patient remained unresponsive, however she has adequate blood pressure, intubated, mechanically ventilated, and family is at bedside. EMS gave at least 5 rounds of epinephrine during CPR, patient was in pulseless electrical activity all along. Chest x-ray in the ER showed endotracheal tube about 5 cm above the roberto, and there was evidence of a large right-sided pleural effusion. At any rate I evaluated the patient in the ICU, multiple family members including and daughter were at bedside, discussed the condition and her clinical picture, family wishes to proceed to comfort care measures. Hence we'll proceed to comfort. Based on the wishes of the family and based on her previously expressed wishes. Reviewed ABG post intubation showed a pO2 of 400 pCO2 37 pH of 7.34 basic metabolic profile showed hypokalemia with potassium of 6.5 BUN of 91 and creatinine 3.80, patient tested negative for influenza A, influenza B, RSV and COVID-19 infection Review of Systems ROS unobtainable: due to endotracheal tube Past Medical History Past Medical History: Atrial Fibrillation, Diabetes Mellitus, Hyperlipidemia, Hypertension, Thyroid Disorder Additional Past Medical History / Comment(s): Falls, CKD, anxiety, weakness, arterialscerotic heart disease, valvular heart disease, History of Any Multi-Drug Resistant Organisms: None Reported Past Surgical History: Pacemaker Additional Past Surgical History / Comment(s): Cataracts, Open heart surgery, sick sinus syndrom with pacemaker, Smoking Status: Former smoker Medications and Allergies Home Medications Medication Instructions Recorded Confirmed Type Simvastatin 40 mg PO HS 11/08/22 04/09/23 History Docusate [Colace] 100 mg PO BID 12/24/22 04/09/23 History Ferrous Sulfate [Feosol] 325 mg PO DAILY 12/24/22 04/09/23 History Metoprolol Tartrate [Lopressor] 25 mg PO BID 12/24/22 04/09/23 History Furosemide [Lasix] 40 mg PO BID 04/09/23 04/09/23 History Levothyroxine Sodium [Synthroid] 100 mcg PO DAILY 04/09/23 04/09/23 History Potassium Chloride [Klor-Con M20] 20 meq PO DAILY 04/09/23 04/09/23 History Tamsulosin HCl [Flomax] 0.4 mg PO DAILY 04/09/23 04/09/23 History Allergies Allergy/AdvReac Type Severity Reaction Status Date / Time Penicillins Allergy Unknown Verified 04/09/23 10:14 Physical Exam Vitals: Vital Signs Temp Pulse Resp BP Pulse Ox FiO2 04/09/23 14:00 75 16 153/81 100 04/09/23 13:30 60 16 158/81 100 04/09/23 13:00 60 16 170/84 98 04/09/23 12:46 50 04/09/23 12:42 50 04/09/23 12:30 91.8 F L 16 176/86 100 50 04/09/23 12:17 50 04/09/23 12:00 60 16 174/86 100 04/09/23 11:22 60 04/09/23 11:01 74 04/09/23 10:40 72 18 160/87 100 04/09/23 10:30 72 18 155/85 100 04/09/23 10:10 72 18 149/85 100 04/09/23 10:00 71 20 154/83 99 04/09/23 09:50 71 20 154/83 04/09/23 09:40 60 14 04/09/23 09:18 20 127/73 04/09/23 09:00 20 117/81 04/09/23 08:45 78 20 120/79 100 04/09/23 08:25 100 04/09/23 08:21 91 20 129/86 99 Intake and Output 04/08/23 04/09/23 04/09/23 22:59 06:59 14:59 Intake Total 2.198 Balance 2.198 Intake: Intake, IV Titration 2.198 Amount propofoL 1,000 mg In 2.198 Empty Bag 1 bag @ 15 MCG/ KG/MIN 5.511 mls/hr IV . Q18H9M [facility] Rx#:[id number] Other: Weight 61.235 kg GENERAL: Revealed an 82-year-old female unresponsive pinpoint pupils, in no distress intubated and mechanically ventilated EYES: Pinpoint pupils, nonreactive. Head atraumatic, normocephalic HEENT: Neck is supple no neck masses no JVD endotracheal tube is intact.. HEART: Distant S1 and S2, no S3 gallop, no murmur. LUNGS: Diminished breath sound bilaterally no rhonchi no wheezes ABDOMEN: Soft nontender no melena no rebound no guarding PSYCH: Could not assess. Unresponsive to any stimuli Neurologic: Unresponsive, to any stimuli. MUSCULOSKELETAL: No deformities noted. LYMPHATICS: No cervical lymphadenopathy noted Results - Laboratory Findings CBC and BMP: 04/09/23 08:32 04/09/23 12:52 ABG ABG pH 7.34 (7.35-7.45) L 04/09/23 09:25 ABG pCO2 37 mmHg (35-45) 04/09/23 09:25 ABG pO2 >400 mmHg (83-108) H 04/09/23 09:25 ABG O2 Saturation 100.0 % (94-97) H 04/09/23 09:25 PT/INR, D-dimer PT 15.0 sec (10.0-12.5) H 04/09/23 08:32 INR 1.4 (<1.2) H 04/09/23 08:32 Abnormal lab findings: Abnormal Labs 04/09/23 04/09/23 04/09/23 08:26 08:32 08:32 RBC 3.45 L Hgb 10.5 L MCHC 30.4 L RDW 16.0 H Plt Count 118 L PT 15.0 H INR 1.4 H APTT 19.8 L ABG pH ABG pO2 ABG HCO3 ABG O2 Saturation Sodium Potassium Chloride Carbon Dioxide BUN Creatinine Glucose POC Glucose (mg/dL) 154 H Magnesium AST ALT Alkaline Phosphatase Total Protein Albumin Urine Appearance Urine Protein Ur Leukocyte Esterase Urine WBC Urine WBC Clumps Amorphous Sediment Urine Mucus 04/09/23 04/09/23 04/09/23 08:32 08:32 09:25 RBC Hgb MCHC RDW Plt Count PT INR APTT ABG pH 7.34 L ABG pO2 >400 H ABG HCO3 20 L ABG O2 Saturation 100.0 H Sodium 131 L Potassium 6.6 H* Chloride 96 L Carbon Dioxide 15 L BUN 83 H Creatinine 3.97 H Glucose 198 H POC Glucose (mg/dL) Magnesium 2.7 H AST 91 H ALT 67 H Alkaline Phosphatase 184 H Total Protein 5.5 L Albumin 2.8 L Urine Appearance Cloudy H Urine Protein 2+ H Ur Leukocyte Esterase Moderate H Urine WBC 39 H Urine WBC Clumps Rare H Amorphous Sediment Few H Urine Mucus Rare H 04/09/23 04/09/23 12:46 12:52 RBC Hgb MCHC RDW Plt Count PT INR APTT ABG pH ABG pO2 ABG HCO3 ABG O2 Saturation Sodium 131 L Potassium 6.5 H* Chloride 94 L Carbon Dioxide 20 L BUN 91 H Creatinine 3.80 H Glucose 194 H POC Glucose (mg/dL) 192 H Magnesium AST 101 H ALT 55 H Alkaline Phosphatase 226 H Total Protein Albumin 3.4 L Urine Appearance Urine Protein Ur Leukocyte Esterase Urine WBC Urine WBC Clumps Amorphous Sediment Urine Mucus - Diagnostic Findings Chest x-ray: image reviewed (As noted in HPI) Additional studies: CT brain showed no acute intracranial process and no midline shift. Moderate diffuse age-related cerebral atrophy and probable chronic small vessel ischemic change Assessment and Plan Assessment: Impression: Witnessed cardiac arrest, prolonged CPR of 23 minutes with 5 rounds of epinephrine given during resuscitation. 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 History of permanent pacemaker implantation Acute on chronic Chronic kidney disease Acute hyperkalemia secondary to acute on chronic kidney disease History of medical debility History of hypothyroidism recommendation: Discussed and reviewed with the and daughter at bedside the overall prognostic picture Discussed the different options available including continuing mechanical ventilation and treat accordingly Also discussed the option of comfort care measures considering her multiple comorbidities and her overall poor prognostic picture Family clearly decided on proceeding to comfort care measures and terminal weaning. We will proceed as per family's wishes and as per the patient's own expressed wishes according to family members. Again prognosis is extremely poor Recommend comfort care measures Time with Patient: Greater than 30
[2023-04-09] MEDS: MORPHINE SULFATE (100 MG/2 ML) 100 MG in SODIUM CHLORIDE 0.9% 100 ML IV SCH ×2 (14:51→18:09)
[2023-04-09 16:06] VITALS: BP 143/71; PULSE 59
[2023-04-10] MEDS ORDERED: PANTOPRAZOLE 40 MG/10 ML VIAL IV SCH (09:00)
--- NOTE | 2023-04-10 10:42 | P.DS ---
Providers Date of admission: 04/09/23 11:27 Expected date of discharge: 04/09/23 Attending physician: Tommie Norman Consults: 04/09/23 11:25 Consult Physician Stat Consulting Provider: Robert Galvan Reason/Comments: cc Do you want consulting provider notified?: Yes Primary care physician: Shari Toledo [place] [facility] Course: Chief Complaint: Became unresponsive This is a 82-year-old patient, follows with Dr. Shari toledo. Chronic stable medical conditions include atrial fibrillation, diabetes, hyperlipidemia, hypertension, hypothyroid, chronic kidney disease, atherosclerotic heart disease, pacemaker, sick sinus syndrome with a pacemaker. Bipolar. History is obtained by the and family members including the daughter in the waiting room. For the last few days patient has been getting another weak and tired. Was even having trouble getting up. had to help her up. Appetite had been poor. No fever no chills. Normally does use a walker. Patient was witnessed to become unconscious. EMS was called out. They found the patient to be unresponsive, pulseless and apneic. 23 minutes of CPR was done prior to that.neighbor Carried out chest compressions. Patient presented with pulseless electrical activity on the monitor. t subsequently developed a pulse. Remained apneic. Patient is intubated. This afternoon in the ICU. Propofol drip blood pressure 160 systolic. Intubated. FiO2 50 to PEEP of 5. Family did inform me that patient's wishes were DO NOT RESUSCITATE. presently was to give her a chance. Late in the afternoon Dr. Galvan from [facility] . the family. Decision was made to proceed with comfort measures. Later patient . Social history: Lives with her . Does use a walker. Former smoker INVESTIGATIONS, reviewed in the clinical context: 04/09/2023: White count 5 hemoglobin 10.5 platelets 118 sodium 131 potassium 6.5 BUN 91 creatinine 3.80 blood glucose 190 AST 101 ALT 55 Influenza type A, B, RSV, COVID-19: Not detected EKG tracing personally reviewed by [id number] pacemaker. Chest x-ray film personally reviewed by me-right basilar Javier vacation Computed tomography scan of the brain age-related atrophy Cause of : Probable CAD Assessment plan: -Witnessed cardiac arrest. 423 minutes of CPR given by the EMS, prior to that by a bystander. 5 epinephrine. Rhythm was PEA. Intubated on the field. -Permanent pacemaker with a ventricular rhythm Cardiology consulted -Chronic kidney disease stage IV. Likely atherosclerosis. Causing hyperkalemia Nephrology consulted -Severe hyperkalemia that could've contributing to patient's cardiac arrest secondary to renal failure Sodium bicarbonate. Dextrose. Insulin. -Chronic medical debility, using a walker at baseline -Acute medical debility. Last few days patient has been becoming progressively increasingly weak. had to require given a hand including getting her hand this morning to get up. -Hypothyroid Synthroid 100 g a day -Bladder dysfunction Flomax -DO NOT RESUSCITATE Disposition: Patient Past Medical History Past Medical History: Atrial Fibrillation, Diabetes Mellitus, Hyperlipidemia, Hypertension, Thyroid Disorder Additional Past Medical History / Comment(s): Falls, CKD, anxiety, weakness, arterialscerotic heart disease, valvular heart disease, History of Any Multi-Drug Resistant Organisms: None Reported Past Surgical History: Pacemaker Additional Past Surgical History / Comment(s): Cataracts, Open heart surgery, sick sinus syndrom with pacemaker, Smoking Status: Former smoker Plan - Discharge Summary New Discharge Prescriptions: No Action Furosemide [Lasix] 40 mg PO BID Simvastatin 40 mg PO HS Metoprolol Tartrate [Lopressor] 25 mg PO BID Ferrous Sulfate [Feosol] 325 mg PO DAILY Docusate [Colace] 100 mg PO BID Levothyroxine Sodium [Synthroid] 100 mcg PO DAILY Tamsulosin HCl [Flomax] 0.4 mg PO DAILY Potassium Chloride [Klor-Con M20] 20 meq PO DAILY Discharge Medication List Simvastatin 40 mg PO HS 11/08/22 [History] Docusate [Colace] 100 mg PO BID 12/24/22 [History] Ferrous Sulfate [Feosol] 325 mg PO DAILY 12/24/22 [History] Metoprolol Tartrate [Lopressor] 25 mg PO BID 12/24/22 [History] Furosemide [Lasix] 40 mg PO BID 04/09/23 [History] Levothyroxine Sodium [Synthroid] 100 mcg PO DAILY 04/09/23 [History] Potassium Chloride [Klor-Con M20] 20 meq PO DAILY 04/09/23 [History] Tamsulosin HCl [Flomax] 0.4 mg PO DAILY 04/09/23 [History] Follow up Appointment(s)/Referral(s): Shari Toledo DO [Primary Care Provider] - 1-2 days Discharge Disposition: - Preliminary Cause of Preliminary Cause of : Probable CAD
--- NOTE | 2023-04-16 13:33 | CDI ---
Documentation Clarification Form Date: 04/16/2003 From: Cira Castano Admit Date: 04/09/2023 11:27:00 AM Patient Name: Sumi Tom Visit Number: [id number] Discharge Date: 04/09/2023 08:34:00 PM ATTENTION: The Clinical Documentation Specialists (CDI) and [facility] Coding Staff appreciate your assistance in clarifying documentation. Please respond to the clarification below the line at the bottom and electronically sign. The CDI & [facility] Coding staff will review the response and follow-up if needed. Please note: Queries are made part of the Legal Health Record. If you have any questions, please contact the author of this message via ITS. Dr. Robert Galvan Your patient presented after a witnessed cardiac arrest w/ ROSC and was intubated by EMS prior to arrival. Based on this information and the findings below, is there an additional diagnosis that is clinically appropriate for this patient? History/Risk Factors: 82yo presented after a witnessed cardiac arrest. Per the pulm consult on 04/09, they were consulted for cardiac arrest and respiratory failure. Per H&P, severe hyperkalemia that couldve contributing to patients cardiac arrest secondary to renal failure. Clinical Indicators: H&P noted increased rate and decreased breath sounds. Decision was made to transition pt to comfort measures and pt on 04/09 CXR 04/09: opacification right lung. Correlate for right pleural effusions. ABG 04/09 post-ventilation: pH 7.34 pO2 >400 pCO2 37 Lactate Treatment: mechanical ventilation, comfort measures terminal wean from ventilation Is there an additional diagnosis that is clinically appropriate for this patient? [ ] Acute Hypoxic Respiratory Failure [ ] Acute Hypercapnic Respiratory Failure [ ] Other Diagnosis, please specify [ x ] Unable to determine (Template Last Revised: April 2023) MTDD
--- NOTE | 2023-04-21 16:12 | CDI ---
Documentation Clarification Form Date: 04/16/2023 01:34:00 PM From: Cira Castano Phone: [phone] Admit Date: 04/09/2023 11:27:00 AM Patient Name: Sumi Tom Visit Number: [id number] Discharge Date: 04/09/2023 08:34:00 PM ATTENTION: The Clinical Documentation Specialists (CDI) and [facility] Coding Staff appreciate your assistance in clarifying documentation. Please respond to the clarification below the line at the bottom and electronically sign. The CDI & [facility] Coding staff will review the response and follow-up if needed. Please note: Queries are made part of the Legal Health Record. If you have any questions, please contact the author of this message via ITS. Dr. Robert Galvan Your patient presented after a witnessed cardiac arrest w/ ROSC and was intubated by EMS prior to arrival. Based on this information and the findings below, is there an additional diagnosis that is clinically appropriate for this patient? History/Risk Factors: 82yo presented after a witnessed cardiac arrest. Per the pulm consult on 04/09, they were consulted for cardiac arrest and respiratory failure. Per H&P, severe hyperkalemia that couldve contributing to patients cardiac arrest secondary to renal failure. Clinical Indicators: H&P noted increased rate and decreased breath sounds. Decision was made to transition pt to comfort measures and pt on 04/09 CXR 04/09: opacification right lung. Correlate for right pleural effusions. ABG 04/09 post-ventilation: pH 7.34 pO2 >400 pCO2 37 Lactate Treatment: mechanical ventilation, comfort measures terminal wean from ventilation Is there an additional diagnosis that is clinically appropriate for this patient? [ ] Acute Respiratory Failure [ ] Other Diagnosis, please specify [ x] Unable to determine (Template Last Revised: April 2023) MTDD
--- NOTE | 2023-04-23 13:30 | CDI ---
Documentation Clarification Form Date: 04/16/2023 01:34:00 PM From: Cira Castano Phone: [phone] Admit Date: 04/09/2023 11:27:00 AM Patient Name: Sumi Tom Visit Number: [id number] Discharge Date: 04/09/2023 08:34:00 PM ATTENTION: The Clinical Documentation Specialists (CDI) and [facility] Coding Staff appreciate your assistance in clarifying documentation. Please respond to the clarification below the line at the bottom and electronically sign. The CDI & [facility] Coding staff will review the response and follow-up if needed. Please note: Queries are made part of the Legal Health Record. If you have any questions, please contact the author of this message via ITS. Dr. Robert Galvan Your patient presented after a witnessed cardiac arrest w/ ROSC and was intubated by EMS prior to arrival. Based on this information and the findings below, is there an additional diagnosis that is clinically appropriate for this patient? History/Risk Factors: 82yo presented after a witnessed cardiac arrest. Per the pulm consult on 04/09, they were consulted for cardiac arrest and respiratory failure. Per H&P, severe hyperkalemia that couldve contributing to patients cardiac arrest secondary to renal failure. Clinical Indicators: H&P noted increased rate and decreased breath sounds. Decision was made to transition pt to comfort measures and pt on 04/09 CXR 04/09: opacification right lung. Correlate for right pleural effusions. ABG 04/09 post-ventilation: pH 7.34 pO2 >400 pCO2 37 Lactate Treatment: mechanical ventilation, comfort measures terminal wean from ventilation Is there an additional diagnosis that is clinically appropriate for this patient? [ x] Acute Respiratory Failure [ ] Other Diagnosis, please specify [ ] Unable to determine (Template Last Revised: April 2023) MTDD
== END 2023-04-09 20:34 | disposition expired | DRG 682 ==
LOC: EC 08:20 → 2SICU 11:27
PROVIDERS: ADMIT Hospitalist; ATTEND Hospitalist
PROC: 5A1935Z Respiratory Ventilation, Less than 24 Consecutive Hours (ICD-10-PCS; principal; 2023-04-09)
DX: N17.9 Acute kidney failure, unspecified (principal); J96.00 Acute respiratory failure, unspecified whether with hypoxia or hypercapnia; G93.1 Anoxic brain damage, not elsewhere classified; I13.0 Hypertensive heart and chronic kidney disease with heart failure and stage 1 through stage 4 chronic kidney disease, or unspecified chronic kidney disease; J90 Pleural effusion, not elsewhere classified; I25.10 Atherosclerotic heart disease of native coronary artery without angina pectoris; N18.4 Chronic kidney disease, stage 4 (severe); I50.9 Heart failure, unspecified; I48.91 Unspecified atrial fibrillation; Z51.5 Encounter for palliative care; Z66 Do not resuscitate; E87.6 Hypokalemia; I46.8 Cardiac arrest due to other underlying condition; R29.6 Repeated falls; E03.9 Hypothyroidism, unspecified; I49.5 Sick sinus syndrome; E11.22 Type 2 diabetes mellitus with diabetic chronic kidney disease; E78.5 Hyperlipidemia, unspecified; E87.5 Hyperkalemia; Z11.52 Encounter for screening for COVID-19; Z79.890 Hormone replacement therapy; Z79.899 Other long term (current) drug therapy; Z95.0 Presence of cardiac pacemaker; Z91.81 History of falling; Z98.49 Cataract extraction status, unspecified eye
CPT/HCPCS: 36415; 36600; 70450; 71045; 80053; 81001; 82805; 83735; 83880; 84484; 85025; 85610; 85730; 87070; 87205; 87636; 93005; 94002; 94640; 96365; 96366; 96375; 99291